=== PATIENT | female | born 1935 | race Caucasian/White ===

== ENCOUNTER 2019-03-27 17:47 | Emergency (ER) | payer MEDICARE ==
[~2019-03-27] VITALS: Ht 157.5 cm; Wt 63.0 kg
[~2019-03-27 17:47] MED LIST: ASPI-1009 PO; METO-539 PO; NITR0.4T51 SL
--- NOTE | 2019-03-27 18:44 | NUR ---
INFORMED DR ARIAS THAT THE PATIENT DOESN'T KNOW THE YEAR SHE THINKS IT IS 2019. SHE KNOWS SHE IS IN [place]. SHE SAID THAT SHE IS DIZZY, THAT SHE WAS DIZZY. THAT IS WHY SHE WAS LAYING ON THE GROUND. SHE KEEPS HER EYES CLOSED. UNKNOWN ONSET TIME, ASSUMING IT WAS WHEN SHE CALLED EMS. SHE DOESN'T WANT TO TALK. IT IS DIFFICULT TO GET ANSWERS OUT OF HER, SHE EITHER IS CHOOSING NOT TO ANSWER, REFUSES TO ANSWER OR THIS IS HER PERSONALITY. AND I CANNOT DIFFERENTIATE AND R/T TIME IS TISSUE, I OPTED TO CALL LEVEL [address] AND INFORM DR ARIAS THAT I HAVE DONE SO.
[2019-03-27 18:55] LABS: HEMOGLOBIN 13.2 g/dl (12.0-16.0); MEAN CORPUSCULAR HEMOGLOBIN 31.5 PG (27.0-31.0); RED CELL DISTRIBUTION WIDTH 13.2 % (11.5-14.5)
[2019-03-27 18:56] LABS: BASOPHILS % (AUTO) 0.2 % (0-1); EOSINOPHILS % (AUTO) 0.1 % (0-6); LYMPHOCYTES # (AUTO) 1.1 X10'3 (1.1-4.8); LYMPHOCYTES % (AUTO) 10.4 % (21-51); MEAN CORPUSCULAR HGB CONC 33.8 g/dL (33.0-36.5); MEAN CORPUSCULAR VOLUME 93.3 FL (78-98); MEAN PLATELET VOLUME 9.3 FL (7.4-10.4); MONOCYTES # (AUTO) 0.6 X10'3 (0-0.9); MONOCYTES % (AUTO) 6.1 % (2-12); NEUTROPHILS # (AUTO) 8.6 X10'3 (1.8-7.7); NEUTROPHILS % (AUTO) 83.2 % (42-75); PLATELET COUNT 197 X10'3 (140-440); RED BLOOD COUNT 4.18 X10'6 (4.20-5.60); WHITE BLOOD COUNT 10.3 X10'3 (4.5-11.0)
--- NOTE | 2019-03-27 18:59 | NUR ---
back from [place]. She keeps her eyes closed.
--- NOTE | 2019-03-27 19:03 | NUR ---
Her son is here now.
--- NOTE | 2019-03-27 19:05 | NUR ---
She is having normal conversation with her son. She carries on a conversation with him.
[2019-03-27 19:12] LABS: ALANINE AMINOTRANSFERASE 20 U/L (12-78); ALBUMIN 3.9 G/DL (3.4-5.0); ALBUMIN/GLOBULIN RATIO 1.2 (1.1-1.5); ALKALINE PHOSPHATASE 68 IU/L (46-116); ANION GAP 7 (8-16); ASPARTATE AMINO TRANSFERASE 15 U/L (10-37); BILIRUBIN,TOTAL 0.5 MG/DL (0.1-1.0); BLOOD UREA NITROGEN 20 MG/DL (7-18); BUN/CREATININE RATIO 24.7 (6.6-38.0); CALCIUM 8.7 MG/DL (8.5-10.1); CHLORIDE 108 MMOL/L (99-107); CREATININE 0.81 MG/DL (0.40-0.90); GLUCOSE 123 MG/DL (70-104); POTASSIUM 4.1 MMOL/L (3.5-5.1); SODIUM 143 MMOL/L (135-145); TOTAL PROTEIN 7.2 G/DL (6.4-8.2); eGFR 67 ML/MIN
[2019-03-27 19:44] LABS: CLARITY,URINE CLEAR (Clear); COLOR,URINE YELLOW (Yellow); GLUCOSE, URINE NEGATIVE (Neg); KETONES,URINE NEGATIVE (Neg); LEUKOCYTE ESTERASE ,URINE NEGATIVE (Neg); NITRITES, URINE NEGATIVE (Neg); OCCULT BLOOD,URINE NEGATIVE (Neg); PROTEIN,URINE NEGATIVE (Neg); UROBILINOGEN,URINE 0.2 E.U/dL (0.2-1.0)
--- NOTE | 2019-03-27 20:02 | NUR ---
son michael went home to get his recovery room nurse he can be reached at [phone]
[2019-03-27 20:32] LABS: UA COLLECTION TYPE STRAIGHT CATH
--- NOTE | 2019-03-27 21:40 | NUR ---
PT STILL CONFUSED SEEMS TO HAVE INCREASED DIFFICULTY RAISING ARMS WHEN HEAD OF BED WAS ELEVATED 90 DEGREES WAS NOT ABLE TO OPEN EYES WHEN SITTING UPRIGHT , ONCE THE HOB WAS LOWERED TO 20-30 DEGREE ANGLE PT WAS ABLE TO FOLLOW SIMPLE COMANDS LIKE SMILE UPON REQUESTED AND WAS ABLE TO STICK HER TONGUE OUT , NOTIFIED DR VILLALPADNO OF THESE CONCERNS
[2019-03-27] MEDS ORDERED: aspirin 300mg supp.rect RC ONE (22:20)
[2019-03-27] MEDS ORDERED: iohexol 350MG/ML 100ml bottle IV ONE (22:23)
--- NOTE | 2019-03-27 23:15 | NUR ---
SECOND TROP DRAWN BY BUYER PLANNER
[2019-03-27 23:20] LABS: TOTAL CELLS COUNTED 100
[2019-03-27 23:21] LABS: PLATELET ESTIMATE NORMAL
--- NOTE | 2019-03-27 23:41 | NUR ---
PT BACK FROM CT
--- NOTE | 2019-03-28 00:15 | NUR ---
CALL PLACED TO SOC TO INITIATE A TELENEUROLOGY CONSULT.
--- NOTE | 2019-03-28 00:45 | NUR ---
NEURO CONSULT VIA NEURO TELEY STARTED
[2019-03-28] MEDS ORDERED: normal saline 1000ml 1,000 ML IV ONE (00:55)
[2019-03-28] MEDS ORDERED: normal saline 1000ML IV soln IVB ONE (00:55)
--- NOTE | 2019-03-28 00:57 | NUR ---
NOTIFIED DR NARANJO THAT NEURO CONSULT IS COMPLETE DR NARANJO IS AT BEDSIDE TO REASSESS PT AT THIS TIME . PT HAVING DIFFICULTY ANSWERING QUESTIONS , WELL FALLOWING COMMANDS WAS ABLE TO STICK OUT HER TONGUE AND BUT WOULDNT LIFT HER ARMS WHEN ASKED
[2019-03-28] MEDS ORDERED: aspirin 81mg tablet.DR PO ONE (01:10)
--- NOTE | 2019-03-28 01:15 | NUR ---
REPOSITIONED PT IN BED AFTER NEURO TELEY CONSULT. LOWERED HEAD OF BED AND SEEN SIMILAR RESULTS PREVIOUSLY IN REGARDS TO THE PATIENT HAVING BETTER PERFORMACE WHEN ASKED TO LIFT ARMS , SMILE, AND TONGUE PT APPEARS TO BE WEAKER ON THE RIGHT SIDE VS THE LEFT EYES ARE ABLE TO BE OPENED EASIER WHEN THE HEAD OF BED IS LOWERED , NOTIFIED DR NARANJO OF THESE FINDINGS .
--- NOTE | 2019-03-28 01:20 | NUR ---
[facility]SP[facility] , EXPECTED ARRIVAL FOR TRANSPORTION AT THIS TIME STILL UNAVAILABLE
--- NOTE | 2019-03-28 01:30 | NUR ---
PT ASKING FOR BED MIR / VOIDED IN BED - CHANGED BEDDING
--- NOTE | 2019-03-28 02:10 | NUR ---
TRANSPORTATION WILL BE WITH [facility] ETA WITHIN THE HOUR
--- NOTE | 2019-03-28 02:17 | NUR ---
I CALLED MENDOZA THE SON AT [phone] TO LET HIM KNOW ABOUT THE DX AND HIS MOTHER BEING TRANSFERRED TO [facility] SOON. [facility] BEING CONTACTED NOW.
--- NOTE | 2019-03-28 02:30 | NUR ---
[facility] ARRIVED EARILER THAN REPORTED REPORT CALLED TO GEENA AT [facility] AT [phone] REPORT GIVEN TO [facility] TEAM PT TRANSFERED TO [facility] FOR TRANSFORTATION .DR FISH IS THE ACCEPTING PHYSICAN SON HAS BEEN NOTIFIED BY JONAH DEL VALLE OF HER TRANSFER.
--- NOTE | 2019-03-28 02:45 | NUR ---
PT TRANSFERED TO [facility] ACCEPTED BY DR FISH REPORT GIVEN TO GEENA MCKENZIE
[2019-03-28 06:11] VITALS: BP 124/73
== END 2019-03-28 02:50 | disposition short-term general hospital (02) ==
LOC: ER 17:47
DX: R41.0 Disorientation, unspecified (principal); E03.9 Hypothyroidism, unspecified; I25.10 Atherosclerotic heart disease of native coronary artery without angina pectoris; I10 Essential (primary) hypertension; I25.2 Old myocardial infarction; Z95.1 Presence of aortocoronary bypass graft; Z90.49 Acquired absence of other specified parts of digestive tract; Z90.710 Acquired absence of both cervix and uterus; Z98.61 Coronary angioplasty status; Z87.891 Personal history of nicotine dependence; Z79.82 Long term (current) use of aspirin; Z79.899 Other long term (current) drug therapy
CPT/HCPCS: 36415; 70450; 70496; 70498; 71045; 80053; 81003; 84443; 84484; 85025; 93005; 99285; J7040; Q9967

== ENCOUNTER 2019-11-17 18:47 | Emergency (ER) | payer MEDICARE ==
[~2019-11-17] VITALS: Ht 157.5 cm; Wt 54.5 kg
--- NOTE | 2019-11-17 18:51 | NUR ---
pt states she takes ASA 81 mg daily. No anticoagulants listed in med rec, and patient cannot recall if she is on anticoagulants.
[2019-11-17] MEDS ORDERED: BUPIVAcaine/PF 2.5 mg/ml (0.25%) 30ml vial IJ ONE (19:45)
[2019-11-17] MEDS ORDERED: ondansetron 4mg rapidly disintigrating tab PO ONE (19:50)
[2019-11-17] MEDS ORDERED: HYDROcodone/acetaminophen 5mg/325mg tablet PO ONE (19:50)
[2019-11-17] MEDS ORDERED: BUPIVAcaine/PF 2.5mg/ml (0.25%) 10ml vial IJ ONE (19:50)
[2019-11-17 20:08] VITALS: BP 170/100
[2019-11-17] MEDS ORDERED: HYDR-3965 PO (20:30)
[2019-11-17] MEDS ORDERED: ONDA8TAB6 PO (20:30)
== END 2019-11-17 21:39 | disposition home or self-care (01) ==
LOC: ER 18:48
DX: S42.435A Nondisplaced fracture (avulsion) of lateral epicondyle of left humerus, initial encounter for closed fracture (principal); M25.512 Pain in left shoulder; S00.83XA Contusion of other part of head, initial encounter; W01.198A Fall on same level from slipping, tripping and stumbling with subsequent striking against other object, initial encounter; Y93.89 Activity, other specified; Y92.89 Other specified places as the place of occurrence of the external cause; I25.10 Atherosclerotic heart disease of native coronary artery without angina pectoris; I10 Essential (primary) hypertension; I25.2 Old myocardial infarction; Z98.61 Coronary angioplasty status; Z90.49 Acquired absence of other specified parts of digestive tract; Z95.1 Presence of aortocoronary bypass graft; Z90.710 Acquired absence of both cervix and uterus; Z79.82 Long term (current) use of aspirin; Z79.899 Other long term (current) drug therapy
CPT/HCPCS: 29105; 64450; 70450; 72125; 73030; 99285

== ENCOUNTER 2019-12-07 11:38 | Emergency (ER) | payer MEDICARE ==
[~2019-12-07] VITALS: Ht 157.5 cm; Wt 54.5 kg
[~2019-12-07 11:38] MED LIST changes: +HYDR-3965 PO; +ONDA8TAB6 PO
[2019-12-07 14:18] VITALS: BP 144/90
== END 2019-12-07 14:10 | disposition home or self-care (01) ==
LOC: ER 11:39
DX: M25.532 Pain in left wrist (principal); I25.10 Atherosclerotic heart disease of native coronary artery without angina pectoris; I10 Essential (primary) hypertension; I25.2 Old myocardial infarction; Z90.49 Acquired absence of other specified parts of digestive tract; Z90.710 Acquired absence of both cervix and uterus; Z79.82 Long term (current) use of aspirin; Z79.899 Other long term (current) drug therapy
CPT/HCPCS: 73110; 99283

== ENCOUNTER 2020-05-23 15:37 | Emergency (ER) | payer OTHER, MEDICAID ==
[~2020-05-23] VITALS: Ht 157.5 cm; Wt 54.5 kg
[~2020-05-23 15:37] MED LIST changes: -HYDR-3965 PO
[2020-05-23 15:42] VITALS: BP 125/65
[2020-05-23] MEDS ORDERED: ketorolac tromethamine 15mg/ml inj. IM ONE (18:50)
[2020-05-23] MEDS ORDERED: ibuprofen tablet 400 MG TABLET PO ONE (19:45)
--- NOTE | 2020-05-23 19:49 | NUR ---
pt is up for discharge and verbally expressing her anger and fustration that it is taking too long "is there only one doctor in this place?" "how long does it take to sign a piece of paper, just get me out of here!" - I attempted to explain to the patient that yes, there is only one doctor here and that he is intubating a patient that is not breathing at the moment and that yes, unfortunately it was going to take a while. Approx 5 mins later I attempted to discharge pt as the primary RN was administering TPA on another patient. A toradol injection was ordered. pt refused the medication and stated, "I don't need a shot, I just need something to help me know and help me tonight. I want a few pills to take home with me." I attempted to explain to the patient that we are not a pharmacy and cannot send medication home with patients that we can only dispense medication to a patient in the ER. She cut me off mid sentence and stated, "you are not listening to me, I just want you to give me a couple of pills to take tonight." I tried explaining it again but pt asked to leave. world language teacher Will pushed pt out to her vehicle in a wheelchair. On the way out she states, "I had to park way far out because you have the front of your parking lot blocked off for ambulances." "there aren't even 6 ambulances out there"
== END 2020-05-23 20:11 | disposition home or self-care (01) ==
LOC: ER 15:38
DX: M54.5 Low back pain (principal); I25.10 Atherosclerotic heart disease of native coronary artery without angina pectoris; I10 Essential (primary) hypertension; I25.2 Old myocardial infarction; Z98.61 Coronary angioplasty status; Z90.49 Acquired absence of other specified parts of digestive tract; Z90.710 Acquired absence of both cervix and uterus; Z79.82 Long term (current) use of aspirin; Z79.899 Other long term (current) drug therapy
CPT/HCPCS: 72220; 99283

== ENCOUNTER 2020-09-01 11:02 | Day surgery (SDC) | payer BC, MEDICAID ==
[2020-08-27 12:06] LABS: BASOPHILS # (AUTO) 0.1 X10'3 (0-0.2); BASOPHILS % (AUTO) 0.8 % (0-1); EOSINOPHILS # (AUTO) 0.1 X10'3 (0-0.9); HEMOGLOBIN 14.3 g/dl (12.0-16.0); LYMPHOCYTES # (AUTO) 1.8 X10'3 (1.1-4.8); LYMPHOCYTES % (AUTO) 23.1 % (21-51); MEAN CORPUSCULAR HEMOGLOBIN 31.4 PG (27.0-31.0); MEAN CORPUSCULAR HGB CONC 33.2 g/dL (33.0-36.5); MEAN CORPUSCULAR VOLUME 94.5 FL (78-98); MONOCYTES # (AUTO) 0.5 X10'3 (0-0.9); MONOCYTES % (AUTO) 6.9 % (2-12); NEUTROPHILS # (AUTO) 5.2 X10'3 (1.8-7.7); NEUTROPHILS % (AUTO) 68.2 % (42-75); PLATELET COUNT 199 X10'3 (140-440); RED BLOOD COUNT 4.55 X10'6 (4.20-5.60); RED CELL DISTRIBUTION WIDTH 13.6 % (11.5-14.5); WHITE BLOOD COUNT 7.6 X10'3 (4.5-11.0)
[2020-08-27 12:14] LABS: ALBUMIN 3.9 G/DL (3.4-5.0); ANION GAP 9 (8-16); BLOOD UREA NITROGEN 14 MG/DL (7-18); BUN/CREATININE RATIO 20.9 (6.6-38.0); CALCIUM 8.9 MG/DL (8.5-10.1); CHLORIDE 107 MMOL/L (99-107); CREATININE 0.67 MG/DL (0.40-0.90); GLUCOSE 87 MG/DL (70-104); POTASSIUM 3.9 MMOL/L (3.5-5.1); SODIUM 145 MMOL/L (135-145); TOTAL CARBON DIOXIDE 28.8 MMOL/L (24-32); eGFR 84 ML/MIN
[2020-08-27 12:17] LABS: PARTIAL THROMBOPLASTIN TIME 25 SECONDS (22-32)
[2020-09-01] VITALS (11 sets, daily range): BP systolic 115–143; BP diastolic 59–77
[~2020-09-01] VITALS: Ht 157.5 cm; Wt 54.2 kg
[2020-09-01] MEDS ORDERED: diphenhydrAMINE 25mg capsule PO PRN (11:25)
[2020-09-01] MEDS ORDERED: normal saline 1,000 ML IV SCH (11:25)
[2020-09-01] MEDS ORDERED: LORazepam 0.5 MG tablet PO PRN (11:25)
[2020-09-01] MEDS ORDERED: midazolam 1 mg/ML 2ml injection ONE (11:58)
[2020-09-01] MEDS ORDERED: iohexol 350MG/ML 100ml bottle IV ONE (11:58)
[2020-09-01] MEDS ORDERED: fentaNYL/PF 50MCG/1 ML 2ML syringe ONE (11:58)
[2020-09-01] MEDS ORDERED: LIDOcaine 1% (10mg/ml)w/preservative injection 20ml MDV ONE (11:58)
[2020-09-01] MEDS ORDERED: CALC-336 PO (12:20)
[2020-09-01] MEDS ORDERED: CLOP75TA15 PO (12:20)
[2020-09-01] MEDS ORDERED: iohexol 350 MG/ML 50ML vial IV ONE (13:15)
[2020-09-01] MEDS ORDERED: hydrALAZINE 20mg/ml inj. IV ONE (13:18)
[2020-09-01] MEDS ORDERED: HYDROcodone/acetaminophen 10/325mg tab PO PRN ×2 (13:45→14:00)
[2020-09-01] MEDS ORDERED: OXAZEpam 15mg capsule PO PRN ×2 (13:45→14:00)
[2020-09-01] MEDS ORDERED: proCHLORperazine 10 MG/2 ml inj IV PRN ×2 (13:45→14:00)
[2020-09-01] MEDS ORDERED: HYDROcodone/acetaminophen 5mg/325mg tablet PO PRN ×2 (13:45→14:00)
[2020-09-01] MEDS ORDERED: ondansetron/PF 4mg/2ml inj IV PRN ×2 (13:45→14:00)
[2020-09-01] MEDS ORDERED: HYDROmorphone inj. 0.5 MG/0.5 ML DISP.SYRIN IV ONE (15:30)
== END 2020-09-01 16:40 | disposition home or self-care (01) ==
LOC: SSTAY O 11:02
PROVIDERS: ATTEND Internal Medicine Interventional Cardiology
DX: I35.0 Nonrheumatic aortic (valve) stenosis (principal); I25.810 Atherosclerosis of coronary artery bypass graft(s) without angina pectoris; I10 Essential (primary) hypertension; E78.5 Hyperlipidemia, unspecified; I65.23 Occlusion and stenosis of bilateral carotid arteries; Z79.01 Long term (current) use of anticoagulants; Z79.82 Long term (current) use of aspirin; Z79.899 Other long term (current) drug therapy
CPT/HCPCS: 36415; 80048; 85025; 85610; 85730; 93005; 93455; 99152; C1769; J0360; J1170; J1644; J2001; J2250; J3010; J7030; Q9967; A4620; A6258

== ENCOUNTER → 2021-01-26 | Outpatient (CLI) | payer BC, MEDICAID ==
[~2021-01-26] MED LIST changes: +CALC-336 PO; +CLOP75TA15 PO; -METO-539 PO; -ONDA8TAB6 PO
[2021-01-26 12:35] LABS: BASOPHILS # (AUTO) 0.1 X10'3 (0-0.2); BASOPHILS % (AUTO) 0.8 % (0-1); EOSINOPHILS # (AUTO) 0.1 X10'3 (0-0.9); EOSINOPHILS % (AUTO) 1.4 % (0-6); HEMATOCRIT 41.6 % (35.0-45.0); HEMOGLOBIN 14.2 g/dl (12.0-16.0); LYMPHOCYTES # (AUTO) 1.9 X10'3 (1.1-4.8); LYMPHOCYTES % (AUTO) 22.7 % (21-51); MEAN CORPUSCULAR HEMOGLOBIN 31.9 PG (27.0-31.0); MEAN CORPUSCULAR HGB CONC 34.1 g/dL (33.0-36.5); MEAN CORPUSCULAR VOLUME 93.6 FL (78-98); MEAN PLATELET VOLUME 9.2 FL (7.4-10.4); MONOCYTES # (AUTO) 0.6 X10'3 (0-0.9); MONOCYTES % (AUTO) 7.2 % (2-12); NEUTROPHILS # (AUTO) 5.6 X10'3 (1.8-7.7); NEUTROPHILS % (AUTO) 67.9 % (42-75); PLATELET COUNT 174 X10'3 (140-440); RED BLOOD COUNT 4.44 X10'6 (4.20-5.60); WHITE BLOOD COUNT 8.2 X10'3 (4.5-11.0)
[2021-01-26 12:48] LABS: ALANINE AMINOTRANSFERASE 19 U/L (12-78); ALBUMIN 3.9 G/DL (3.4-5.0); ALBUMIN/GLOBULIN RATIO 1.1 (1.1-1.5); ALKALINE PHOSPHATASE 74 IU/L (46-116); ANION GAP 11 (8-16); ASPARTATE AMINO TRANSFERASE 23 U/L (10-37); BILIRUBIN,TOTAL 0.7 MG/DL (0.1-1.0); BLOOD UREA NITROGEN 15 MG/DL (7-18); BUN/CREATININE RATIO 21.4 (6.6-38.0); CHLORIDE 109 MMOL/L (99-107); GLUCOSE 91 MG/DL (70-104); SODIUM 146 MMOL/L (135-145); TOTAL CARBON DIOXIDE 26.1 MMOL/L (24-32); TOTAL PROTEIN 7.5 G/DL (6.4-8.2); eGFR 79 ML/MIN
[2021-01-26 12:49] LABS: POTASSIUM 4.4 MMOL/L (3.5-5.1)
== END | disposition home or self-care (01) ==
LOC: LAB 11:54
PROVIDERS: ATTEND Internal Medicine Cardiovascular Disease
DX: I35.0 Nonrheumatic aortic (valve) stenosis (principal)
CPT/HCPCS: 36415; 80053; 85025

== ENCOUNTER 2022-10-15 12:19 | Emergency (ER) | payer BC, MEDICAID ==
[~2022-10-15] VITALS: Ht 160 cm; Wt 57.0 kg
[2022-10-15 12:29] VITALS: BP 106/82; PULSE 74; RESP 16; TEMP 97.4; O2SAT 91
== END 2022-10-15 18:09 | disposition left against medical advice (07) ==
LOC: ER 12:19
DX: M54.9 Dorsalgia, unspecified (principal); M25.552 Pain in left hip; Z53.21 Procedure and treatment not carried out due to patient leaving prior to being seen by health care provider
CPT/HCPCS: 99281

== ENCOUNTER 2023-11-15 09:09 | Emergency (ER) | payer BC, MEDICAID ==
[~2023-11-15] VITALS: Ht 160 cm; Wt 54.5 kg
[~2023-11-15 09:09] MED LIST changes: -ASPI-1009 PO; +ATOR10TA70 PO; -CALC-336 PO; +EZET10TA48 PO; +HYDR-3972 PO; +MULT-1085 PO; -NITR0.4T51 SL; +POTA10CA95 PO
[2023-11-15] MEDS ORDERED: DICL20GE TOP (11:18)
[2023-11-15] MEDS ORDERED: HYDR-3965 PO (11:19)
[2023-11-15] MEDS ORDERED: GABA300C PO (11:21)
[2023-11-15] MEDS ORDERED: VALA100031 PO (11:21)
[2023-11-15] MEDS: HYDROcodone/acetaminophen 5mg/325mg tablet PO ONE (11:33)
[2023-11-15] MEDS: ondansetron 4mg rapidly disintigrating tab PO ONE (11:33)
[2023-11-15 11:34] VITALS: BP 118/68; PULSE 68; RESP 18; TEMP 98.2; O2SAT 98
== END 2023-11-15 11:38 | disposition home or self-care (01) ==
LOC: ER 09:10
DX: G89.29 Other chronic pain (principal); M54.50 Low back pain, unspecified; M54.6 Pain in thoracic spine; I25.10 Atherosclerotic heart disease of native coronary artery without angina pectoris; I10 Essential (primary) hypertension; Z79.899 Other long term (current) drug therapy; Z98.890 Other specified postprocedural states; Z90.710 Acquired absence of both cervix and uterus
CPT/HCPCS: 72070; 72100; 99284